=== PATIENT | male | born 1965 | race Caucasian/White ===

== ENCOUNTER 2025-08-23 16:37 | Emergency (ER) | payer MEDICAID ==
[~2025-08-23] VITALS: Ht 172.7 cm; Wt 60.0 kg
[2025-08-23 16:39] VITALS: BP 180/92; PULSE 111; RESP 16; TEMP 98.2; O2SAT 99
== END 2025-08-23 19:58 | disposition left against medical advice (07) ==
LOC: ER 16:37
DX: M25.572 Pain in left ankle and joints of left foot (principal)
CPT/HCPCS: 99281